=== PATIENT | male | born 1995 | race Caucasian/White ===

== ENCOUNTER 2023-07-19 09:05 | Outpatient (AMB) | payer OTHER, SELFPAY ==
--- NOTE | 2023-07-19 09:13 | MHC.PC.OV ---
Vital Signs 07/19/23 09:15 Height 5 ft 6 in Weight 133 lb 6 oz BMI 21.5 BP 126/74 Blood Pressure Location Rt brachial Position Sitting Respiration 13 Pulse 68 Pulse Source Pulse Oximeter Temp 97.7 F Temp Source Temporal Artery Scan Pulse Oximetry (%) 99 Oxygen Delivery Method Room Air Intake Visit Reasons: New patient-Type 1 Diabetes Intake Note: Patient states that he recently moved here in August and would like a referral to a termite exterminator helper. Patient would like some omnipods ordered for his insulin. Choir Leader Required: No Accompanied by: Self / Same As Patient Allergies No Known Allergies Allergy (Verified 07/19/23 09:34) Medication List - Last Reviewed 07/19/23 by Neisha Ledesma MA dextroamphetamine-amphetamine 10 mg 1 tab PO BID insulin aspart U-100 (Novolog U-100 Insulin aspart) 40 units subcut DAILY insulin pump cart,cont inf,BT (Omnipod Dash Pods (Gen 4) subcutaneous cartridge) As directed Tobacco use date assessed: 07/19/23 Dental Screening Dental Screen Date: 07/19/23 Did you have a dental visit in the last 12 months?: Yes Did you have a dental problem in the last 6 months where you did not have access to dental care?: No Was dental information given to patient?: Patient has dentist HPI HPI Comments History of Present Illness Details New patient Prior Endocrinology:?[facility], Dr. Kramer He did not have have a PCP. He relocated from [place] to [facility] in August, Last office visit/CPE: April 2022 Last routine blood work: April 2022 Acute issue(s): Type 1 diabetes -He is on Novolog via insulin pump and has been infusing about 40 units daily. Last A1c was 6.7% in April,. He requests a referral to endocrinology ADHD -He reports taking Dextroamphetamine-amphetamine 10 mg twice daily. He is following by a telehealth psychiatrist through [facility] monthly. PMHx: Type 1 diabetes, ADHD SurgHx:Exlap and Biopsy 2009 FHx: Mom: Clotting disorder, HLD. Dad: Asthma, DM. MGM: alcoholism, HLD. PGM: HLD, DM SocHx: Nonsmoker. 1-2 drink monthly max. No drugs. Last diabetic retinal eye exam: 1.5 year ago. He notes he has a follow up appointment next month [facility] Medical History (Updated 07/19/23 @ 09:57 by Mann Roldan CNP) Diabetes 1.5, managed as type 1 ADHD Surgical History (Updated 07/19/23 @ 09:34 by Neisha Ledesma MA) H/O hernia repair Family History (Updated 07/19/23 @ 09:37 by Neisha Ledesma MA) Mother High cholesterol Clotting disorder Father Asthma Diabetes Maternal Grandmother High cholesterol Alcoholism Paternal Grandmother Diabetes Social History Housing: House Patient Tobacco Use Status: Never used Tobacco e-Cigarette/Vaping Use: Never Used service: No Current occupational status: employed 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 1. Little interest or pleasure in doing things: not at all 2. Feeling down, depressed, or hopeless: not at all 3. Trouble falling or staying asleep, or sleeping too much: several days 4. Feeling tired or having little energy: several days 5. Poor appetite or overeating: not at all 6. Feeling bad about yourself - or that you are a failure or have let yourself or your family down: not at all 7. Trouble concentrating on things, such as reading the newspaper or watching television: not at all 8. Moving or speaking so slowly that other people could have noticed. Or the opposite - being so fidgety or restless that you have been moving around a lot more than usual: not at all 9. Thoughts that you would be better off or of hurting yourself in some way: not at all Total score: 2 Depression Screening Interpretation: Negative Depression Screening Done: Yes 77651 - PHQ-9 Billing: Yes Source: Developed by Drs. Gildardo Chacon, Xiomy Moody, Mumtaz Holcomb and colleagues, with an educational kait from [employer]. Thrive Questionnaire Date Thrive assessed: 07/19/23 I am a: Patient What is your living situation today?: I have a steady place to live Within the past 12 months, did the food you bought not last and you didn't have the money to get more?: Never true Within the past 12 months, did you worry whether your food would run out before you got money to buy more?: Never true Do you have trouble paying for medicines?: No Do you have trouble getting transportation to medical appointments?: No Do you have trouble paying your heating and electricity bill?: No Do you have trouble taking care of your child, family member or friend?: No Do you have trouble with day-to-day activities such as bathing, preparing meals, shopping, managing finances, etc.?: No Are you currently unemployed and looking for a job?: No Are you interested in more education?: No Please select the resources that you would like help with: None Currently or been in a relationship where the following occur: no concerns reported AUDIT C Alcohol Use Questionnaire (AUDIT-C) 1. How often do you have a drink containing alcohol?: Monthly or less 2. How many drinks containing alcohol do you have on a typical day when you are drinking?: 1 or 2 3. How often do you have six or more drinks on one occasion?: Never Total Score: 1 NAM-7 AMB Questionnaire NAM-7 Date NAM - 7 assessed: 07/19/23 Feeling nervous, anxious, or on edge: 0 = Not at all Not being able to stop or control worryin = Not at all Worrying too much about different things: 0 = Not at all Trouble relaxin = Several days Being so restless that it is hard to sit still: 0 = Not at all Becoming easily annoyed or irritable: 0 = Not at all Feeling afraid as if something awful might happen: 0 = Not at all Total NAM-7 score (0-4 normal; 5-9 mild; 10-14 moderate; 15-21 severe): 1 Source: Developed by Drs. Gildardo Chacon, Xiomy Moody, Mumtaz Holcomb and colleagues, with an educational kait from [employer]. NAM-7 Assessment Billing NAM-7 Assessment Tool: NAM-7 Assessment 76022 Review of Systems Const Details: Const Denies chills, Denies fatigue, Denies fever(s), Denies headache(s) and Denies weakness ENT Denies dizziness and Denies headache(s) Card Denies chest pain, Denies lightheadedness, Denies dyspnea and Denies other (Palpitations) Resp Denies cough, Denies dyspnea, Denies wheezing and Denies other ( shortness of breath) GI Denies abdominal pain, Denies melena, Denies hematochezia, Denies change in bowel habits, Denies dyspepsia and Denies nausea Denies hematuria and Denies dysuria Musc Denies abnormal gait, Denies myalgias, Denies arthralgias, Denies numbness and Denies tingling Skin/Breast Denies rash, Denies unusual bruising and Denies wounds Neuro Denies abnormal gait, Denies dizziness, Denies headache(s), Denies memory loss, Denies numbness, Denies Sensory deficit (Neuro), Denies tingling and Denies weakness Psych Denies anxiety, Denies depression, Denies memory loss Endo Denies cold intolerance, Denies fatigue, Denies heat intolerance, Denies polydipsia and Denies polyuria Aller/Immun Denies wheezing Physical exam (Primary Care) Vital Signs: Last Vital Signs Temp 97.7 F 07/19/23 09:15 Pulse 68 07/19/23 09:15 Resp 13 07/19/23 09:15 BP 126/74 07/19/23 09:15 Pulse Ox 99 07/19/23 09:15 Oxygen Delivery Method Room Air 07/19/23 09:15 BMI result Body Mass Index 21.5 Tobacco/Smoking Status: Tobacco use Status Tobacco use date assessed 07/19/23 07/19/23 09:29 Patient Tobacco Use Status Never used Tobacco 07/19/23 09:29 e-Cigarette/Vaping Use Never Used 07/19/23 09:29 PHQ-9: PHQ-9 Score PHQ-9: Total score 2 07/19/23 09:37 Depression Screening Interpretation: Negative Thrive Assessment: Date of Thrive Assessment Date Thrive assessed 07/19/23 07/19/23 09:37 Currently or been in a relationship where the following occur: no concerns reported Const Other: General: no acute distress and well developed Nutritional Appearance: well nourished Orientation/consciousness: patient oriented x3 HENMT Head: Yes normocephalic and Yes atraumatic Eyes General: appearance normal, both eyes and all related structures Pupils: Equal, round and reactive pupils present EOM: EOMs intact bilaterally Resp Effort & Inspection: normal respiratory effort Auscultation: clear to auscultation bilaterally Cardio Rate: regular rate Rhythm: regular rhythm Heart sounds: S1 normal heart sound present, S2 normal heart sound present, no gallops, no murmurs and no rubs GI Palpation (GI): No Abdominal aortic bruit present, Soft to palpation, nontender, No hepatosplenomegaly present and No Rebound tenderness present Auscultation: normal bowel sounds General: Yes no CVA tenderness Back/Spine/Pelvis Back: no CVA tenderness Cervical Spine: cervical ROM normal and No Cervical spine tenderness Thoracic/Lumbar Spine: thoraco-lumbar ROM normal, No pain with thoraco-lumbar ROM, No thoracic spinal tenderness and No lumbar spinal tenderness Extrem General: Yes normal to inspection, No edema and No calf tenderness Skin General: warm and dry. Normal skin color. Normal skin turgor Lesions: no lesions Rashes: no rashes Trauma: no lacerations or abrasions Wounds: no wounds Nails: normal Neuro General: patient oriented x3, gait normal and no focal neuro deficit Cranial nerves: Yes Equal, round and reactive pupils present Cognition (Neuro): normal cognition Gait exam (Neuro): Normal gait present Sensory Exam: No Sensory deficit (Neuro) Psych Appearance: grossly normal Affect: normal affect Attitude: cooperative Thought process: Normal thought process present Results AMB Hemoglobin A1c AMB Hemoglobin A1c 8.2 % Last Edit by Neisha Ledesma MA on 07/19/23 09:47 Assessment and Plan Assessment & Plan (1) Type 1 diabetes: Code(s): E10.9 - Type 1 diabetes mellitus without complications Plan: A1c is 8.2% today, above goal of less than 7.0% Continue with current treatment regimen ADA diet and routine exercise encouraged Referred to endocrinology and nurse navigator Omnipods ordered Will recheck A1c in 3 months Follow-up in 1 month for an extended physical exam and labs review Return sooner with symptoms or concerns Verbalized understanding and agreed with treatment plan (2) ADHD: Code(s): F90.9 - Attention-deficit hyperactivity disorder, unspecified type Plan: No acute symptoms Continue to follow up with psychiatrist as planned Return with symptoms or concerns Verbalized understanding and agreed with treatment plan (3) Laboratory tests ordered as part of a complete physical exam (CPE): Code(s): Z00.00 - Encounter for general adult medical examination without abnormal findings Plan: Fasting labs ordered as part of a complete physical exam. Advised to fast for at least 10 hours before getting labs drawn. May drink water Verbalized understanding and agreed with treatment plan. Orders: Orders Comprehensive Starlight. Panel Fast Today E10.9 - Type 1 diabetes mellitus without complications, Z00.00 - Encounter for general adult medical examination without abnormal findings Lipid Panel Today E10.9 - Type 1 diabetes mellitus without complications, Z00.00 - Encounter for general adult medical examination without abnormal findings Complete Blood Count Auto Diff Today E10.9 - Type 1 diabetes mellitus without complications, Z00.00 - Encounter for general adult medical examination without abnormal findings TSH reflex Free T4 Today Z00.00 - Encounter for general adult medical examination without abnormal findings Microalbumin, Random (w Creat) Today E10.9 - Type 1 diabetes mellitus without complications Referrals Endocrinology Referral E10.9 - Type 1 diabetes mellitus without complications Nurse Navigator Referral E10.9 - Type 1 diabetes mellitus without complications Medications: New miscellaneous medical supply 18 boxes x 90 days 90 ea 1RF E10.9 - Type 1 diabetes mellitus without complications Coding Level of Care Code New Pt Level 4 (73853) Diagnoses Type 1 diabetes E10.9 ADHD F90.9 Laboratory tests ordered as part of a complete physical exam (CPE) Z00.00 Additional Codes NAM-7 Assessment Billing - NAM-7 Assessment Tool: NAM-7 Assessment 13745 ([id number])
[2023-07-19 09:15] VITALS: BP 126/74; PULSE 68; RESP 13; TEMP 36.5; O2SAT 99; BMI 21.5
== END 2023-07-19 10:02 | disposition home or self-care (01) ==
PROVIDERS: PCP Nurse Practitioner Family; Visit Provider Nurse Practitioner Family
DX: E10.9 Type 1 diabetes mellitus without complications (principal); F90.9 Attention-deficit hyperactivity disorder, unspecified type
CPT/HCPCS: 83036; 99204

== ENCOUNTER 2024-07-03 10:40 | Outpatient (AMB) | payer OTHER, SELFPAY ==
--- NOTE | 2024-07-03 10:43 | MHC.PC.OV ---
Vital Signs 07/03/24 10:49 Height 5 ft 6 in Weight 131 lb 6 oz BMI 21.2 BP 108/78 Blood Pressure Location Rt brachial Position Sitting Respiration 16 Pulse 83 Pulse Source Pulse Oximeter Temp 97.6 F Temp Source Oral Pulse Oximetry (%) 99 Oxygen Delivery Method Room Air Intake Visit Reasons: Referral for senior climate advisor Intake Note: patient here requesting a referral for Endo. Commission Sales Associate Required: No Allergies No Known Allergies Allergy (Verified 07/03/24 10:50) Medication List - Last Reconciled 07/03/24 by Mann Roldan CNP dextroamphetamine-amphetamine 10 mg 1 tab PO BID insulin aspart U-100 (Novolog U-100 Insulin aspart) 40 units (0.4 mL) subcut DAILY 90 days insulin pump cart,cont inf,BT (Omnipod Dash Pods (Gen 4) subcutaneous cartridge) As directed miscellaneous medical supply Omnipod Dash 5 Maximilian 90 days miscellaneous medical supply 18 boxes x 90 days Tobacco use date assessed: 07/03/24 Dental Screening Dental Screen Date: 07/03/24 Did you have a dental visit in the last 12 months?: No Did you have a dental problem in the last 6 months where you did not have access to dental care?: No Was dental information given to patient?: Patient has dentist HPI HPI Comments History of Present Illness Details The patient is a 28-year-old male presenting with a follow-up for Type 1 Diabetes Mellitus management. The patient was initially seen on July 19, 2023, when care was established. At that time, the patient's Hemoglobin A1c was 8.2%. The patient self-adjusted insulin dosing from 40 units to 50 units of Novolog via an insulin pump, administered daily. Despite this increase, he reports frequent hyperglycemia, particularly when forgetting to administer insulin postprandially. The patient expresses desire to consult endocrinology to explore alternative insulin pumps that integrate with continuous glucose monitors, as he believes this may help manage high blood glucose levels. He reports fasting glucose levels averaging between 170-180 mg/dL, with postprandial glucose levels often exceeding 210-220 mg/dL. He intends to complete laboratory tests before July 19, as advised during the initial visit, but these were not yet performed despite previous directives. 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 1. Little interest or pleasure in doing things: not at all 2. Feeling down, depressed, or hopeless: not at all 3. Trouble falling or staying asleep, or sleeping too much: not at all 4. Feeling tired or having little energy: not at all 5. Poor appetite or overeating: not at all 6. Feeling bad about yourself - or that you are a failure or have let yourself or your family down: not at all 7. Trouble concentrating on things, such as reading the newspaper or watching television: not at all 8. Moving or speaking so slowly that other people could have noticed. Or the opposite - being so fidgety or restless that you have been moving around a lot more than usual: not at all 9. Thoughts that you would be better off or of hurting yourself in some way: not at all Total score: 0 16563 - PHQ-9 Billing: Yes Source: Developed by Drs. Gildardo Chacon, Xiomy Moody, Mumtaz Holcomb and colleagues, with an educational kait from [employer]. Thrive Questionnaire Date Thrive assessed: 07/03/24 I am a: Patient What is your living situation today?: I have a steady place to live Within the past 12 months, did the food you bought not last and you didn't have the money to get more?: Never true Within the past 12 months, did you worry whether your food would run out before you got money to buy more?: Never true Do you have trouble paying for medicines?: No Do you have trouble getting transportation to medical appointments?: No Do you have trouble paying your heating and electricity bill?: No Do you have trouble taking care of your child, family member or friend?: No Do you have trouble with day-to-day activities such as bathing, preparing meals, shopping, managing finances, etc.?: No Are you currently unemployed and looking for a job?: No Are you interested in more education?: No Please select the resources that you would like help with: None Currently or been in a relationship where the following occur: No concerns reported THRIVE Score: 0 AUDIT C Alcohol Use Questionnaire (AUDIT-C) 1. How often do you have a drink containing alcohol?: Monthly or less 2. How many drinks containing alcohol do you have on a typical day when you are drinking?: 1 or 2 3. How often do you have six or more drinks on one occasion?: Never Total Score: 1 NAM-7 AMB Questionnaire NAM-7 Date NAM - 7 assessed: 07/03/24 Feeling nervous, anxious, or on edge: 0 = Not at all Not being able to stop or control worryin = Not at all Worrying too much about different things: 0 = Not at all Trouble relaxin = Not at all Being so restless that it is hard to sit still: 0 = Not at all Becoming easily annoyed or irritable: 0 = Not at all Feeling afraid as if something awful might happen: 0 = Not at all Total NAM-7 score (0-4 normal; 5-9 mild; 10-14 moderate; 15-21 severe): 0 Source: Developed by Drs. Gildardo Chacon, Xiomy Moody, Mumtaz Holcomb and colleagues, with an educational kait from [employer]. NAM-7 Assessment Billing NAM-7 Assessment Tool: NAM-7 Assessment 54722 Review of Systems Const Details: Const Denies chills, Denies fatigue, Denies fever(s), Denies headache(s) and Denies weakness ENT Denies dizziness and Denies headache(s) Card Denies chest pain, Denies lightheadedness, Denies dyspnea and Denies other (Palpitations) Resp Denies cough, Denies dyspnea, Denies wheezing and Denies other ( shortness of breath) GI Denies abdominal pain, Denies melena, Denies hematochezia, Denies change in bowel habits, Denies dyspepsia and Denies nausea Denies hematuria and Denies dysuria Musc Denies abnormal gait, Denies myalgias, Denies arthralgias, Denies numbness and Denies tingling Skin/Breast Denies rash, Denies unusual bruising and Denies wounds Neuro Denies abnormal gait, Denies dizziness, Denies headache(s), Denies memory loss, Denies numbness, Denies Sensory deficit (Neuro), Denies tingling and Denies weakness Psych Denies anxiety, Denies depression, Denies memory loss Endo Reports frequent hyperglycemia with fasting glucose averaging 170-180 mg/dL and postprandial levels of 210-220 mg/dL Aller/Immun Denies wheezing Physical exam (Primary Care) Vital Signs: Last Vital Signs Temp 97.6 F 07/03/24 10:49 Pulse 83 07/03/24 10:49 Resp 16 07/03/24 10:49 BP 108/78 07/03/24 10:49 Pulse Ox 99 07/03/24 10:49 Oxygen Delivery Method Room Air 07/03/24 10:49 BMI result Body Mass Index 21.2 Tobacco/Smoking Status: Tobacco use Status Tobacco use date assessed 07/03/24 07/03/24 10:48 Patient Tobacco Use Status Never used Tobacco 07/03/24 10:46 e-Cigarette/Vaping Use Never Used 07/03/24 10:46 PHQ-9: PHQ-9 Score PHQ-9: Total score 0 07/03/24 10:52 Thrive Assessment: Date of Thrive Assessment Date Thrive assessed 07/03/24 07/03/24 10:48 Currently or been in a relationship where the following occur: No concerns reported Const Other: General: no acute distress and well developed Nutritional Appearance: well nourished Orientation/consciousness: patient oriented x3 HENMT Head: Yes normocephalic and Yes atraumatic Eyes General: appearance normal, both eyes and all related structures Pupils: Equal, round and reactive pupils present EOM: EOMs intact bilaterally Resp Effort & Inspection: normal respiratory effort Auscultation: clear to auscultation bilaterally Cardio Rate: regular rate Rhythm: regular rhythm Heart sounds: S1 normal heart sound present, S2 normal heart sound present, no gallops, no murmurs and no rubs GI Palpation (GI): No Abdominal aortic bruit present, Soft to palpation, nontender, No hepatosplenomegaly present and No Rebound tenderness present Auscultation: normal bowel sounds General: Yes no CVA tenderness Back/Spine/Pelvis Back: no CVA tenderness Extrem General: Yes normal to inspection, No edema and No calf tenderness Skin General: warm and dry. Normal skin color. Normal skin turgor Neuro General: patient oriented x3, gait normal and no focal neuro deficit Cranial nerves: Yes Equal, round and reactive pupils present Cognition (Neuro): normal cognition Gait exam (Neuro): Normal gait present Sensory Exam: No Sensory deficit (Neuro) Psych Appearance: grossly normal Affect: normal affect Attitude: cooperative Thought process: Normal thought process present Results AMB Hemoglobin A1c AMB Hemoglobin A1c 7.2 % Last Edit by Genesis Mcintosh on 07/03/24 11:41 Coding Level of Care Code Est Pt Level 3 (52186) Diagnoses Type 1 diabetes E10.9 Additional Codes NAM-7 Assessment Billing - NAM-7 Assessment Tool: NAM-7 Assessment 59498 ([id number]) PHQ-9 - 11711 - PHQ-9 Billing: Yes ([id number]) Assessment & Plan Assessment & Plan (1) Type 1 diabetes: Code(s): E10.9 - Type 1 diabetes mellitus without complications Category: Medical Plan: Place an urgent referral to endocrinology for evaluation of current management and potential switch to an advanced pump integrated with glucose monitoring technology. Emphasize dietary modifications focusing on carbohydrate reduction and encourage regular physical activity. During the visit, I discussed with the patient the management of Type 1 Diabetes Mellitus, emphasizing the importance of maintaining an A1c below the target of 7.0%. The patient was advised to continue the current insulin regimen, as recent changes improved the A1c to 7.2%. I explained the need for routine lab work and endorsed dietary modifications with low carbohydrate intake and regular exercise to enhance glycemic control. I provided an urgent referral to endocrinology to expedite assessment for using a new insulin pump system compatible with continuous glucose monitoring. I encouraged completing fasting labs before the upcoming physical examination and discussed anticipated follow-up care plans. - Complete fasting lab tests, including CBC, CMP, lipid panel, and thyroid evaluation, prior to July 19, 2024. - Continue current insulin regimen of 50 units daily via pump. - Maintain a low carbohydrate diet and engage in regular physical activity. - Schedule and attend an endocrinology appointment promptly as referred. - Monitor blood glucose levels and report any issues with hyperglycemia. - Schedule a follow-up appointment for physical within the next month. Patient was informed and verbally consented to the use of an ambient scribe for clinic note documentation during this visit. Orders: Orders UA CC w/rflx Micro + Cult Today Z00.00 - Encounter for general adult medical examination without abnormal findings AMB Hemoglobin A1c Today Z13.9 - Encounter for screening, unspecified Referrals Endocrinology Referral E10.9 - Type 1 diabetes mellitus without complications
[2024-07-03 10:49] VITALS: BP 108/78; PULSE 83; RESP 16; TEMP 36.4; O2SAT 99; BMI 21.2
== END 2024-07-03 11:35 | disposition home or self-care (01) ==
PROVIDERS: PCP Nurse Practitioner Family; Visit Provider Nurse Practitioner Family
DX: Z13.9 Encounter for screening, unspecified (principal); E10.9 Type 1 diabetes mellitus without complications

== ENCOUNTER → 2024-07-03 10:40 | Outpatient (BNVA) | payer OTHER, SELFPAY | PROVIDERS: PCP Nurse Practitioner Family; Visit Provider Nurse Practitioner Family | DX: E10.9 Type 1 diabetes mellitus without complications (principal) | CPT/HCPCS: 83036; 96127 ==

== ENCOUNTER 2024-07-11 15:33 | Outpatient (AMB) | payer OTHER, SELFPAY ==
--- NOTE | 2024-07-11 15:17 | MHC.OFFVIS ---
Vital Signs 07/11/24 15:35 Height 5 ft 6 in Weight 132 lb 0.91 oz BMI 21.3 BP 140/92 H Blood Pressure Location Rt brachial Position Sitting Pulse 88 Pulse Source Pulse Oximeter Intake Visit Reasons: Type 1 DM/LVM Intake Note: New patient presents today for D1MT visit. Last Diabetic Eye exam: Over 1 year ago. 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 Hgb A1C 07/03/24 7.2% down from 07/19/23 8.2%. He is on an Omnipod 5 system. Was initially started on treatment with basal bolus insulin Omnipod 5 Active insulin time 2 hours Basal rates 00:00 0.6 units/hour 09:00 0.7 units/hour 16:00 0.7 units/hour 21:00 0.6 units/hour Correction factor 00:00 95 Insulin to carb ratio 00:00 14 g BG correction threshold 00:00 160 Unable to down load sensor today Treats lows with glucose/food. [Checks] sugar after to ensure it is rising. [Follows] the rule of 15's. Has eyes checked yearly, last eye exam due [Denies] neuropathy, last foot exam [], does not see podiaty denies nephropathy,not on jose-arb UAC due Not on statin Last LDL due [Denies] history of CAD. [Had] diabetes education. Diet/Carb counting: [] Weight: [] [Denies] prior episodes of DKA. [Denies] prior severe episodes of hypoglycemia requiring help or hospitalization. 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 Absence of acromegalic features. Neck exam reveals nl size thyroid about 15 gms. No thyroid nodules palpable. No carotid bruits present. Lungs CTA. Heart S1 S2, Reg R/R. No M/R/ G. Skin exam reveals absence of vitiligo or acanthosis nigricans. Abdominal exam reveals Soft NT/ND with NA BS. No organomegaly present. Const Other: Absence of Cushingoid features. Absence of acromegalic features. Neck exam reveals nl size thyroid about 15 gms. No thyroid nodules palpable. No carotid bruits present. Lungs CTA. Heart S1 S2, Reg R/R. No M/R G. Skin exam reveals absence of vitiligo or acanthosis nigricans. No edema Visual exam of foot performed. No ulcerations or open lesions. No inter digit maceration or fissuring. No onychomycosis, no callouses. Sensation intact to monofilament exam. Vibratory sensation is normal with 128 Hz tuning fork. Extrem Other: Visual exam of foot performed. No ulcerations or open lesions. No onchomycosis, no callouses.Pulses 2 + distally. Sensation intact to monofilament exam. Vibratory sensation sensed 10 seconds in right, 10 seconds in left with 128 Hz tuning fork Results Reviewed Results Reviewed: Laboratory Last Values Glucose (Clinic) 109 mg/dL (60-115) 07/11/24 15:42 Assessment & Plan Assessment & Plan (1) Type 1 diabetes: Code(s): E10.9 - Type 1 diabetes mellitus without complications Category: Medical Plan: Type 1 diabetic on an Omnipod with G7. Unable to download data today from glucose sensor. Most recent hemoglobin A1c 7.2% in June. Patient was encouraged to enter all carbohydrates before the meals to prevent the rise in sugars after meals. The patient had an opportunity to ask questions regarding treatment plan. The patient expressed understanding and agreement with the above treatment plan. The patient is aware they should contact our office by phone for worsening glucose readings or for any low blood sugars which may warrant a change in diabetes medication. Compliance is encouraged with medications and any followup testing/consults which may have been ordered. Patient Instructions: The patient was counseled to always carry a source of sugar and on the rule of 15's: Take 3 glucose tablets and repeat again in 15 minutes if blood sugar is not in normal range. Continue to repeat every 15 minutes until blood sugar is normal. Symptoms of DKA (diabetic ketoacidosis): early: frequent urination, dry mouth, fatigue, feeling ill, severe symptoms: ketones in the urine, abdominal pain, nausea, vomiting and weakness. It is important to hydrate with sugar free liquids every 15-30 minutes and bring the sugars down to normal levels. If you are moderate or severe with ketones or unable to bring glucose to less than 200, go to the emergency room. Troubleshooting after starting new pod or inserting new insulin set: Occlusion, adhesive tape sensitivity, redness Check BG 2 hours after site change Safety information: Importance of a backup plan, for manual injections, proper prescriptions and emergency supplies ketone strips, and rules for testing for ketones The patient was counseled to achieve a target A1C of 7% (154 avg). Fasting blood sugars should be 90-130 in the morning and less than 180 two hours after meals. Reviewed the relationship between poor diabetic control and the development of complications. Coding Level of Care Code New Pt Level 4 (08235) Complex EM visit Add On G2211 Diagnoses Type 1 diabetes E10.9 Time Spent (min) 40 Comment Time spent reviewing labs/provider notes, face to face, chart doc
[2024-07-11 15:35] VITALS: BP 140/92; PULSE 88; BMI 21.3
[2024-07-11 15:46] LABS: Glucose, Whole Blood 109 mg/dL (60-115)
== END 2024-07-16 09:00 | disposition home or self-care (01) ==
PROVIDERS: PCP Nurse Practitioner Family; Visit Provider Nurse Practitioner Adult Health
DX: E10.9 Type 1 diabetes mellitus without complications (principal)
CPT/HCPCS: 99204; G2211

== ENCOUNTER → 2024-07-11 15:33 | Outpatient (BNVA) | payer OTHER, SELFPAY | PROVIDERS: PCP Nurse Practitioner Family; Visit Provider Nurse Practitioner Adult Health | DX: E10.9 Type 1 diabetes mellitus without complications (principal); Z96.41 Presence of insulin pump (external) (internal) | CPT/HCPCS: 82947 ==

== ENCOUNTER 2024-07-23 08:02 | Outpatient (AMB) | payer OTHER, SELFPAY ==
--- NOTE | 2024-07-23 08:47 | MHC.AMDMED ---
Intake Intake Visit Reasons: T1DM Speech And Language Specialist Required: No Accompanied by: Self / Same As Patient Allergies No Known Allergies Allergy (Verified 07/11/24 15:40) HPI Comprehensive Diabetes Asmnt Most Recent Diabetes Results: No Data to Display [facility] Medical History (Updated 07/19/23 @ 09:57 by Mann Roldan CNP) Diabetes 1.5, managed as type 1 ADHD Surgical History H/O hernia repair Family History Mother High cholesterol Clotting disorder Father Asthma Diabetes Maternal Grandmother High cholesterol Alcoholism Paternal Grandmother Diabetes Social History Housing: House Patient Tobacco Use Status: Never used Tobacco e-Cigarette/Vaping Use: Never Used service: No Current occupational status: employed 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 checks BG 1-2 times/day Downloaded meter today no Patient? reports glycemic control as: fair Most recent Hgb A1C: 7.2% Frequency of low B-2 times weekly Low BG treatment: Fruit juice Frequency of high BG: Daily Has pt been on a pump in the past? yes Reviewed insulin pump basics today with Patient. Explained pros and cons of insulin pumps. Showed pt various pumps, infusion sets, and cgms currently available. Reviewed need to wear pump 24/7 and need to change infusion set every 3 days. Also stressed importance of frequent BG checks, 4x daily minimum or use pump that is integrated with CGM.? TDD:40 units Patient demonstrated motivation for continued insulin pump education and understands the need to complete education prior to starting insulin pump for best outcome. Patient is interesting upgrading to Omnipod 5, to be compatible with Dexcom G6 on iPhone melissa We set up an inserted Dexcom G6, to be compatible with Omnipod 5 IOS melissa Instructed patient sensors water proof you can shower, or swim do not submerge sensor in water for over 30 minutes Is sensor falls off cannot put back in you need to replace sensor, customer service number given to patient for sensor replacement Sensor placed on the back of R arm Patient left visit with sensor in warmup Reviewed how to interpret trend arrows Reminded patient that to check finger sticks if symptoms do not match sensor reading. Discussed lag time between finger stick and sensor data.? Instructed patient she should always keep blood glucometer for backup testing if needed Reviewed delay of CGM from fingersticks Reminded pt that if symptoms do not match sensor still needs to check fingersticks. Portions of this note were created using voice recognition software, please excuse any words or phrases that may have been misinterpreted. Patient Instructions: Patient instruction: CGM provides information on blood glucose control throughout the day, including hyperglycemia and hypoglycemia. ? Continue to monitor blood glucose as instructed. Follow nutrition guidelines provided. Report any discomfort promptly to health care provider. ?Stay well-hydrated. You can bathe ,shower, swim and exercise while wearing the glucose sensor. Do not submerge glucose sensor in water for more than 30 minutes. Coding Level of Care Code Est Pt Level 1 (90085) Diagnoses Type 1 diabetes E10.9
== END 2024-07-23 09:02 | disposition home or self-care (01) ==
PROVIDERS: PCP Nurse Practitioner Family; Visit Provider Registered Nurse Diabetes Educator
DX: E10.9 Type 1 diabetes mellitus without complications (principal)

== ENCOUNTER → 2024-07-23 08:02 | Outpatient (BNVA) | payer OTHER, SELFPAY | PROVIDERS: PCP Nurse Practitioner Family; Visit Provider Registered Nurse Diabetes Educator | DX: Z46.81 Encounter for fitting and adjustment of insulin pump (principal); E10.9 Type 1 diabetes mellitus without complications | CPT/HCPCS: 99211 ==

== ENCOUNTER 2024-08-23 09:02 | Outpatient (AMB) | payer OTHER, SELFPAY ==
--- NOTE | 2024-08-23 07:40 | MHC.OFFVIS ---
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
--- NOTE | 2024-08-23 09:09 | A.OFFVIS_ITS ---
Vital Signs 08/23/24 09:11 Height 5 ft 6 in Weight 130 lb 1.164 oz BMI 21.0 BP 130/64 Blood Pressure Location Rt brachial Position Sitting Pulse 96 Pulse Source Pulse Oximeter Intake Visit Reasons: T1DM Intake Note: Patient presents today for a follow-up on Type 1 Diabetes Mellitus: Last Diabetic eye exam was on: DUE Last Podiatry exam was on: Patient does not see a Supervising Producer Most recent HbA1c: 7.2%, 07/03/2024 Random Glucose- 214 mg/dL, Today Group Leader Semiconductor Processing Required: No Accompanied by: Self / Same As Patient Allergies No Known Allergies Allergy (Verified 08/23/24 09:12) [facility] Medical History Diabetes 1.5, managed as type 1 ADHD Surgical History H/O hernia repair Family History Mother High cholesterol Clotting disorder Father Asthma Diabetes Maternal Grandmother High cholesterol Alcoholism Paternal Grandmother Diabetes Social History Housing: House Patient Tobacco Use Status: Never used Tobacco e-Cigarette/Vaping Use: Never Used service: No Current occupational status: employed 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 He has in encouraged to consistently enter his carbohydrate g before eating which should get his A1c within range. The patient had an opportunity to ask questions regarding treatment plan. The patient expressed understanding and agreement with the above treatment plan. The patient is aware they should contact our office by phone for worsening glucose readings or for any low blood sugars which may warrant a change in diabetes medication. Compliance is encouraged with medications and any followup testing/consults which may have been ordered. Labs ordered Orders: Orders Lipid Panel 08/23/24 E10.9 - Type 1 diabetes mellitus without complications Creatinine Urine 08/23/24 E10.9 - Type 1 diabetes mellitus without complications Complete Blood Count Auto Diff 08/23/24 E10.9 - Type 1 diabetes mellitus without complications Basic Metabolic Panel Fasting 08/23/24 E10.9 - Type 1 diabetes mellitus without complications Microalbumin, Random (w Creat) 08/23/24 E10.9 - Type 1 diabetes mellitus without complications Patient Instructions: The patient was counseled to always carry a source of sugar and on the rule of 15's: Take 3 glucose tablets and repeat again in 15 minutes if blood sugar is not in normal range. Continue to repeat every 15 minutes until blood sugar is normal. The patient was counseled to achieve a target A1C of 7% (154 avg). Fasting blood sugars should be 90-130 in the morning and less than 180 two hours after meals. Reviewed the relationship between poor diabetic control and the development of complications. Troubleshooting after starting new pod or inserting new insulin set: Occlusion, adhesive tape sensitivity, redness Check BG 2 hours after site change Safety information: Importance of a backup plan, for manual injections, proper prescriptions and emergency supplies ketone strips, and rules for testing for ketones Symptoms of DKA (diabetic ketoacidosis): early: frequent urination, dry mouth, fatigue, feeling ill, severe symptoms: ketones in the urine, abdominal pain, nausea, vomiting and weakness. It is important to hydrate with sugar free liquids every 15-30 minutes and bring the sugars down to normal levels. If you are moderate or severe with ketones or unable to bring glucose to less than 200, go to the emergency room. Check your feet daily looking for any signs of infection, ulceration and seek medical attention if this occurs. Break in shoes gradually and do not wear open-toed shoes or walk barefooted. Coding Level of Care Code New Pt Level 5 (67096) Complex EM visit Add On G2211 Diagnoses Type 1 diabetes E10.9 Time Spent (min) 45 Comment Time spent reviewing labs/provider notes, face to face, chart doc
[2024-08-23 09:11] VITALS: BP 130/64; PULSE 96; BMI 21.0
[2024-08-23 09:20] LABS: Glucose, Whole Blood 214 mg/dL (60-115)
== END 2024-08-23 09:52 | disposition home or self-care (01) ==
PROVIDERS: PCP Nurse Practitioner Family; Visit Provider Nurse Practitioner Adult Health
DX: E10.9 Type 1 diabetes mellitus without complications (principal)
CPT/HCPCS: 99215; G2211

== ENCOUNTER → 2024-08-23 09:02 | Outpatient (BNVA) | payer OTHER, SELFPAY | PROVIDERS: PCP Nurse Practitioner Family; Visit Provider Nurse Practitioner Adult Health | DX: E10.9 Type 1 diabetes mellitus without complications (principal) | CPT/HCPCS: 82947 ==

== ENCOUNTER 2025-05-28 10:45 | Outpatient (AMB) | payer OTHER, SELFPAY ==
--- NOTE | 2025-05-28 10:47 | A.OFFVIS_ITS ---
Vital Signs 3 05/28/25 10:51 Height 5 ft 6 in Weight 141 lb 1.533 oz BMI 22.8 BP 120/80 Blood Pressure Location Rt brachial Position Sitting Pulse 85 Pulse Source Pulse Oximeter Pulse Oximetry (%) 98 Oxygen Delivery Method Room Air Intake Visit Reasons: T1DM Intake Note: Patient presents today for a follow-up on Type 1 Diabetes Mellitus, on insulin pump: Last seen by Tish Leroy NP. Last Diabetic eye exam was on: Needs a referral Last Podiatry exam was on: Patient does not see a Exercise Equipment Repair Technician Most recent HbA1c: 5.4%, 05/2025 Random Glucose: 175 mg/dL Patent Engineer Required: No Accompanied by: Self / Same As Patient Allergies No Known Allergies Allergy (Verified 05/28/25 10:53) Medication List - Last Reconciled 05/28/25 by Ying Mckeon MD blood-glucose sensor (Donde G7 Sensor device) every 10 days for use with insulin pump dextroamphetamine-amphetamine 10 mg 1 tab PO BID glucagon 3 mg/actuation (Baqsimi) 3 mg intranasal ONCE insulin glargine (Lantus Solostar U-100 Insulin) 16 units (0.16 mL) subcut DAILY PRN 90 days insulin lispro up to 60 units daily via continuous insulin pump subcutaneously use as directed; 90 days insulin pump cart,auto,BT,G6/7 (Omnipod 5 G6-G7 Pods (Gen 5) subcutaneous cartridge) continuous use change every 3 days miscellaneous medical supply Omnipod Dash 5 Maximilian 90 days miscellaneous medical supply 18 boxes x 90 days pen needle, diabetic (BD Ultra-Fine Rosa Pen Needle) qid prn pump failure or high glucose HPI Comments Details: The patient was diagnosed with Type 1 Diabetes Mellitus in 2000 at the age of [age]. Initial symptoms included high blood sugar and frequent urination, but no episodes of diabetic ketoacidosis (DKA) or loss of consciousness were reported. He uses an Omnipod insulin pump and a G7 sensor, with both devices connected via an melissa for automated basal adjustments. The main challenge the patient faces is remembering to bolus, which leads to occasional high blood sugar readings. The patient's diet is currently sporadic due to the recent of their child, but typically consists of three meals a day. No family history of diabetes reported. Blood glucose levels have been well managed with the automated system, maintaining levels under 150 mg/dL when boluses are administered on time. The patient reports using approximately 50 units of insulin per day, including bolus doses. No recent changes in insulin settings; however, the patient manually adjusts when the sensor is off. The patient has not experienced significant hypoglycemia and manages occasional lows with glucose tablets or small Gatorade drinks. The patient has a glucagon injection for emergencies and checks for ketones when blood sugar exceeds 250 mg/dL. Macrovascular/microvascular complications: - No tingling or numbness in feet. - No history of stroke or heart attack. Diet: - Three meals per day, although currently irregular due to care. Exercise: - No formal exercise routine mentioned; plans to start working out. Eye doctor: - Last eye appointment was 2-3 years ago with no retinopathy found; referral needed for current eye check-up. Podiatry: - No issues reported. Insulin pump settings Omnipod 5 Active insulin time 2 hours Basal rates 00:00 0.7 units/hour 09:00 0.7 units/hour 16:00 0.7 units/hour 21:00 0.6 units/hour Correction factor 00:00 95 Insulin to carb ratio 00:00 12 g BG correction threshold 00:00 160 Physical exam: General: Well appearing. NAD. Not Cushingoid or Acromegalic Neck/Thyroid: Thyroid not palpable, no nodules. CV: RRR, no murmur. No edema. Peripheral Pulses palpable bilaterally Resp:Lungs clear to auscultation bilaterally Abdomen: Soft, nontender. nondistended Extremities/Neuro: No weakness or tremor of outstretched hands Diabetic Foot Exam: Normal sensation to monofilament exam in all explored areas Labs: Laboratory Tests 05/28/25 05/28/25 10:57 11:00 Glucose (Clinic) 178 H Hgb A1c (Clinic) 5.4 CGM/Pump data: Interpretation: Postprandial hyperglycemia due to timing of insulin (given after meal) [facility] Medical History Diabetes 1.5, managed as type 1 ADHD Surgical History H/O hernia repair Family History Mother High cholesterol Clotting disorder Father Asthma Diabetes Maternal Grandmother High cholesterol Alcoholism Paternal Grandmother Diabetes Social History Housing: House Patient Tobacco Use Status: Never used Tobacco e-Cigarette/Vaping Use: Never Used service: No Current occupational status: employed 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 needs: No Hearing needs: No Vision needs: No Physical Exam Vital Signs: Last Vital Signs Pulse 85 05/28/25 10:51 BP 120/80 05/28/25 10:51 Pulse Ox 98 05/28/25 10:51 Oxygen Delivery Method Room Air 05/28/25 10:51 BMI result Body Mass Index 22.8 Office Procedures Glucose Monitoring Details 58348 - Glucose Monitoring, continuous Procedure code (CPT) selection complete Results AMB Hemoglobin A1c 2 AMB Hemoglobin A1c 5.4 % Last Edit by NABEEL Macias on 05/28/25 11:05 Results Reviewed Results Reviewed: Laboratory Last Values Glucose (Clinic) 178 mg/dL (60-115) H 05/28/25 10:57 Hgb A1c (Clinic) 5.4 % (4.0-6.0) 05/28/25 11:00 Assessment & Plan Assessment & Plan (1) Type 1 diabetes: Code(s): E10.9 - Type 1 diabetes mellitus without complications Category: Medical Plan A1c in office was 5.4 %, which since lower than expected for the patient with an average blood glucose of 183 per CGM. I think that the GMI 7.7% since I can more accurate representation of patient's current diabetes control. I think the main him to address at this point is insulin timing. Plan - Continue with current insulin pump and CGM setup. - Emphasize timely bolus administration and carb counting. - Screen for complications: eyes, kidneys, nerves, CV risk. - ophthalmology referral placed - Reinforce sick-day rules and DKA prevention. - Prescribe Baqsimi nasal glucagon for hypoglycemia management. - Conduct labs for kidney function, thyroid function, vitamin D, cholesterol, and urine protein. - Continue monitoring blood glucose before meals and at bedtime. - Treat BG <70 mg/dL with 15 g fast-acting carbs, recheck in 15 minutes. - Check ketones if BG >250 mg/dL repeatedly or during illness. - Maintain daily foot checks and annual eye and urine albumin screenings. Orders: Orders 2 AMB Hemoglobin A1c Today E10.9 - Type 1 diabetes mellitus without complications Basic Metabolic Panel Today E10.9 - Type 1 diabetes mellitus without complications TSH reflex Free T4 Today E10.9 - Type 1 diabetes mellitus without complications Lipid Panel Today E10.9 - Type 1 diabetes mellitus without complications AMB Glucose Monitoring Today E10.9 - Type 1 diabetes mellitus without complications Vitamin D 25-OH Total Today E10.9 - Type 1 diabetes mellitus without complications Microalbumin, Random (w Creat) Today E10.9 - Type 1 diabetes mellitus without complications Referrals 2 Ophthalmology Referral E10.9 - Type 1 diabetes mellitus without complications Medications: New 2 glucagon 3 mg/actuation (Baqsimi) To be use once in case of severe hypoglycemia and altered mental status 3 mg intranasal ONCE 1 ea 2RF E10.9 - Type 1 diabetes mellitus without complications Coding Level of Care Code Est Pt Level 4 (84888) Diagnoses Type 1 diabetes E10.9 CPT Codes Details - CPT: 26404 - Glucose Monitoring, continuous ([id number]) Time Spent (min) 50 Comment Time spent on review of previous records, history, exam/plan and patient education.
[2025-05-28 10:51] VITALS: BP 120/80; PULSE 85; O2SAT 98; BMI 22.8
[2025-05-28 11:01] LABS: Glucose, Whole Blood 178 mg/dL (60-115)
== END 2025-05-28 11:43 | disposition home or self-care (01) ==
LOC: HO.ENCR 10:46
PROVIDERS: PCP Nurse Practitioner Family; Visit Provider Student in an Organized Health Care Education/Training Program
DX: E10.9 Type 1 diabetes mellitus without complications (principal)
CPT/HCPCS: 99214

== ENCOUNTER → 2025-05-28 10:45 | Outpatient (BNVA) | payer OTHER, SELFPAY | PROVIDERS: PCP Nurse Practitioner Family; Visit Provider Student in an Organized Health Care Education/Training Program | DX: E10.9 Type 1 diabetes mellitus without complications (principal); Z79.4 Long term (current) use of insulin; Z96.41 Presence of insulin pump (external) (internal) | CPT/HCPCS: 82947; 83036; 95250 ==